=== PATIENT | male | born 1965 | race African-American/Black ===

== ENCOUNTER 2022-04-08 21:51 | Emergency (ER) | payer BC ==
[2022-04-08] MEDS ORDERED: Apixaban 5 MG TAB PO SCH (23:30)
== END 2022-04-08 23:24 | disposition home or self-care (01) ==
LOC: ERS 21:51
DX: I82.502 Chronic embolism and thrombosis of unspecified deep veins of left lower extremity (principal); Z76.0 Encounter for issue of repeat prescription; Z79.01 Long term (current) use of anticoagulants
CPT/HCPCS: 99281